=== PATIENT | female | born 1990 | race African-American/Black ===

== ENCOUNTER 2016-10-19 12:54 | Emergency (ER) | payer OTHER ==
[~2016-10-19] VITALS: Ht 152.4 cm; Wt 63.5 kg
[2016-10-19 13:15] VITALS: BP 135/95
[2016-10-19] MEDS ORDERED: SULF1TAB24 PO (13:57)
--- NOTE | 2016-10-19 13:57 | PHYS DOC ---
Past Medical History Past Medical History: Other Additional Past Medical Histor: heart murmur Past Surgical History: No Surgical History Alcohol Use: Occasionally Drug Use: None Adult General Chief Complaint Chief Complaint: TEST HPI HPI Patient is a 25 year old female with no significant medical history who presents today requesting a test because she's had left breast nipple discharge for acouple days. Patient denies missing any of her cycles. Denies any history of breast cancer. Review of Systems Review of Systems Constitutional: Denies fever or chills [] Eyes: Denies change in visual acuity, redness, or eye pain [] HENT: Denies nasal congestion or sore throat [] Respiratory: Denies cough or shortness of breath [] Cardiovascular: No additional information not addressed in HPI [] GI: Denies abdominal pain, nausea, vomiting, bloody stools or diarrhea [] : Denies dysuria or hematuria [] Musculoskeletal: Denies back pain or joint pain [] Integument:left nipple discharge Neurologic: Denies headache, focal weakness or sensory changes [] Endocrine: Denies polyuria or polydipsia [] Allergies Allergies Allergies Coded Allergies Type Severity Reaction Last Updated Verified No Known Drug Allergies 06/08/14 No Physical Exam Physical Exam Constitutional: Well developed, well nourished, no acute distress, non-toxic appearance. [] HENT: Normocephalic, atraumatic, bilateral external ears normal, oropharynx moist, no oral exudates, nose normal. [] Eyes: PERRLA, EOMI, conjunctiva normal, no discharge. [] Neck: Normal range of motion, no tenderness, supple, no stridor. [] Cardiovascular:Heart rate regular rhythm, no murmur [] Lungs & Thorax: Bilateral breath sounds clear to auscultation [] Abdomen: Bowel sounds normal, soft, no tenderness, no masses, no pulsatile masses. [] Skin: Bilateral breast are pendulous, both nipples pierced with metallic nipple rings. Left nipple has some yellowish blood drainage around the nipple ring. There is also trace amount of white discharge from the nipple of the left breast. No warmth to the breast. No obvious abscess to the breast. Back: No tenderness, no CVA tenderness. [] Extremities: No tenderness, no cyanosis, no clubbing, ROM intact, no edema. [] Neurologic: Alert and oriented X 3, normal motor function, normal sensory function, no focal deficits noted. [] Psychologic: Affect normal, judgement normal, mood normal. [] Current Patient Data Vital Signs Vital Signs Date Time Temp Pulse Resp B/P (MAP) Pulse Ox O2 Delivery O2 Flow Rate FiO2 10/19/16 13:15 98.1 82 16 100 Room Air 98.1 Lab Values Laboratory Tests Test 10/19/16 12:33 POC Urine HCG, Qualitative Hcg negative (Negative) EKG EKG [] Radiology/Procedures Radiology/Procedures [] Course & Med Decision Making Course & Med Decision Making Pertinent Labs and Imaging studies reviewed. (See chart for details) Patient is in the ED requesting a test. She's had left nipple discharge for acouple days. Negative test. Tetanus shot is up-to- date. She does of infection on the left breast most of it originating from the pierced area of the breast. I recommended she removes the hardware from the breast. Reminded had the breast pierced area will probably close. Discharge her with the Bactrim. Recommended warm compresses to the breast and follow-up with an TRANSFER TABLE OPERATOR that I provided all her own doctor in 1-2 weeks. Dragon Disclaimer Dragon Disclaimer This electronic medical record was generated, in whole or in part, using a voice recognition dictation system. Departure Departure Impression: Primary Impression: Infection of left breast Disposition: 01 HOME, SELF-CARE Condition: STABLE Referrals: NO PCP (PCP) LOTUS BEDOYA Jr, MD follow up in one week Patient Instructions: Skin Infections Additional Instructions: You were seen for left breast infection. Consider removing the hardware from the left breast to help clear the infection. The pierced hole might close. Complete your antibiotics. Follow-up with your own doctor or the provided OB/ MATERIALS ANALYST in 1 week. Scripts Sulfamethoxazole/Trimethoprim (BACTRIM DS TABLET) 1 Each Tablet 1 TAB PO BID, #20 TAB Prov: LOU DELVALLE APRN 10/19/16 LOU DELVALLE APRN Oct 19, 2016 13:57
== END 2016-10-19 14:00 | disposition home or self-care (01) ==
LOC: ER 12:54
DX: N61.0 Mastitis without abscess (principal); Z32.02 Encounter for pregnancy test, result negative
CPT/HCPCS: 81025; 99283

== ENCOUNTER 2017-06-15 22:00 | Emergency (ER) | payer OTHER ==
[2017-06-15 22:31] LABS: URINE HCG POC HCG NEGATIVE (Negative)
== END 2017-06-16 00:03 | disposition home or self-care (01) ==
LOC: ER 06-16 00:03
DX: R10.32 Left lower quadrant pain (principal); F12.10 Cannabis abuse, uncomplicated
CPT/HCPCS: 76830; 76856; 81025; 99284-25

== ENCOUNTER 2019-04-19 10:31 | Emergency (ER) | payer SELFPAY ==
[~2019-04-19] VITALS: Ht 152.4 cm; Wt 66.0 kg
[~2019-04-19 10:31] MED LIST: SULF1TAB24 PO
[2019-04-19 11:02] LABS: BILIRUBIN,URINE NEGATIVE (NEG); CLARITY,URINE CLEAR; COLOR,URINE YELLOW; NITRITE,URINE NEGATIVE (NEG); PROTEIN,URINE NEGATIVE (NEG-TRACE); UROBILINOGEN,URINE 0.2 mg/dL (0.2 mg/dL)
[2019-04-19] MEDS ORDERED: IV NORMAL SALINE 1000ML BAG 1,000 ML IV ONE (11:14)
[2019-04-19] MEDS ORDERED: ONDANSETRON PF 4 MG/2 ML VIAL. IV ONE (11:15)
[2019-04-19] MEDS ORDERED: FAMOTIDINE 20 MG/2 ML VIAL IVP ONE (11:15)
[2019-04-19] MEDS ORDERED: fentaNYL PF VIAL 100 MCG/2 ML VIAL IV ONE (11:15)
[2019-04-19 11:17] LABS: BACTERIA,URINE 0 /HPF (0-FEW); RBC,URINE OCC /HPF (0-2); SQUAMOUS EPITHELIAL CELL,UR FEW /LPF; WBC,URINE 0 /HPF (0-4)
[2019-04-19 11:30] VITALS: BP 140/84
--- NOTE | 2019-04-19 11:31 | PHYS DOC ---
Past Medical History Past Medical History: Other Additional Past Medical Histor: heart murmur Past Surgical History: No Surgical History Smoking Status: Never Smoker Alcohol Use: Occasionally Drug Use: Marijuana Adult General Chief Complaint Chief Complaint: ABDOMINAL PAIN HPI HPI Patient is a 28 year old female who presents with 3 days of epigastric pain that is dull. She states she has a lot of gas and had a stool this morning that looked like "rohini". States have nausea but no vomiting or diarrhea. States took Tylenol yesterday. Review of Systems Review of Systems GI: Epigastric abdominal pain, nausea, denies vomiting, bloody stools or diarrhea [] All other systems were reviewed and found to be within normal limits, except as documented in this note. Current Medications Current Medications Current Medications Medications (Trade) Dose Ordered Sig/Mike Start Time Stop Time Status Last Admin Dose Admin Famotidine (Pepcid Vial) 20 mg 1X ONCE 04/19/19 11:15 04/19/19 11:18 DC 04/19/19 11:30 20 MG Fentanyl Citrate (Fentanyl 2ml Vial) 50 mcg 1X ONCE 04/19/19 11:15 04/19/19 11:18 DC 04/19/19 11:31 50 MCG Info (CONTRAST GIVEN -- Rx MONITORING) 1 each PRN DAILY PRN 04/19/19 11:45 04/21/19 11:44 Iohexol (Omnipaque 300 Mg/ml) 75 ml 1X ONCE 04/19/19 12:00 04/19/19 12:01 DC 04/19/19 12:20 75 ML Ondansetron HCl (Zofran) 4 mg 1X ONCE 04/19/19 11:15 04/19/19 11:18 DC 04/19/19 11:30 4 MG Sodium Chloride 1,000 ml @ 1,000 mls/hr Q1H ONCE 04/19/19 11:14 04/19/19 12:13 DC 04/19/19 11:30 1,000 MLS/HR Allergies Allergies Allergies Coded Allergies Type Severity Reaction Last Updated Verified No Known Drug Allergies 06/08/14 No Physical Exam Physical Exam Constitutional: Well developed, well nourished, no acute distress, non-toxic appearance. [] HENT: Normocephalic, atraumatic, bilateral external ears normal, oropharynx moist, no oral exudates, nose normal. [] Eyes: PERRLA, EOMI, conjunctiva normal, no discharge. [] Neck: Normal range of motion, no tenderness, supple, no stridor. [] Cardiovascular:Heart rate regular rhythm, no murmur [] Lungs & Thorax: Bilateral breath sounds clear to auscultation [] Abdomen: Bowel sounds normal, soft, epigastric tenderness, no masses, no pulsatile masses. [] Skin: Warm, dry, no erythema, no rash. [] Back: No tenderness, no CVA tenderness. [] Extremities: No tenderness, no cyanosis, no clubbing, ROM intact, no edema. [] Neurologic: Alert and oriented X 3, normal motor function, normal sensory funct ion, no focal deficits noted. [] Psychologic: Affect normal, judgement normal, mood normal. [] Current Patient Data Vital Signs Vital Signs Date Time Temp Pulse Resp B/P (MAP) Pulse Ox O2 Delivery O2 Flow Rate FiO2 04/19/19 11:31 16 100 Room Air 04/19/19 11:30 72 140/84 (102) 04/19/19 10:50 98.3 98.3 Lab Values Laboratory Tests Test 04/19/19 10:44 04/19/19 10:48 04/19/19 11:20 Urine Collection Type Unknown Urine Color Yellow Urine Clarity Clear Urine pH 7.0 Urine Specific [place] 1.025 Urine Protein Negative mg/dL (NEG-TRACE) Urine Glucose (UA) Negative mg/dL (NEG) Urine Ketones (Stick) Negative mg/dL (NEG) Urine Blood Negative (NEG) Urine Nitrite Negative (NEG) Urine Bilirubin Negative (NEG) Urine Urobilinogen Dipstick 0.2 mg/dL (0.2 mg/dL) Urine Leukocyte Esterase Negative (NEG) Urine RBC Occ /HPF (0-2) Urine WBC 0 /HPF (0-4) Urine Squamous Epithelial Cells Few /LPF Urine Bacteria 0 /HPF (0-FEW) Urine Mucus Marked /LPF POC Urine HCG, Qualitative Hcg negative (Negative) White Blood Count 7.2 x10^3/uL (4.0-11.0) Red Blood Count 5.00 x10^6/uL (3.50-5.40) Hemoglobin 14.9 g/dL (12.0-15.5) Hematocrit 44.2 % (36.0-47.0) Mean Corpuscular Volume 89 fL (79-100) Mean Corpuscular Hemoglobin 30 pg (25-35) Mean Corpuscular Hemoglobin Concent 34 g/dL (31-37) Red Cell Distribution Width 14.2 % (11.5-14.5) Platelet Count 263 x10^3/uL (140-400) Neutrophils (%) (Auto) 74 % (31-73) H Lymphocytes (%) (Auto) 18 % (24-48) L Monocytes (%) (Auto) 8 % (0-9) Eosinophils (%) (Auto) 0 % (0-3) Basophils (%) (Auto) 1 % (0-3) Neutrophils # (Auto) 5.3 x10^3/uL (1.8-7.7) Lymphocytes # (Auto) 1.3 x10^3/uL (1.0-4.8) Monocytes # (Auto) 0.5 x10^3/uL (0.0-1.1) Eosinophils # (Auto) 0.0 x10^3/uL (0.0-0.7) Basophils # (Auto) 0.0 x10^3/uL (0.0-0.2) Sodium Level 137 mmol/L (136-145) Potassium Level 4.3 mmol/L (3.5-5.1) Chloride Level 103 mmol/L (98-107) Carbon Dioxide Level 27 mmol/L (21-32) Anion Gap 7 (6-14) Blood Urea Nitrogen 14 mg/dL (7-20) Creatinine 0.8 mg/dL (0.6-1.0) Estimated GFR (Cockcroft-Gault) 104.1 BUN/Creatinine Ratio 18 (6-20) Glucose Level 98 mg/dL (70-99) Calcium Level 8.9 mg/dL (8.5-10.1) Total Bilirubin 0.4 mg/dL (0.2-1.0) Aspartate Amino Transferase (AST) 18 U/L (15-37) Alanine Aminotransferase (ALT) 30 U/L (14-59) Alkaline Phosphatase 62 U/L (46-116) Total Protein 7.8 g/dL (6.4-8.2) Albumin 3.6 g/dL (3.4-5.0) Albumin/Globulin Ratio 0.9 (1.0-1.7) L Lipase 432 U/L (73-393) H Laboratory Tests 04/19/19 11:20 Laboratory Tests 04/19/19 11:20 EKG EKG [] Radiology/Procedures Radiology/Procedures [] Impressions: [facility] [address] [place] [address] IMAGING REPORT Signed PATIENT: JAY PATEL ACCOUNT: [id number] : 1990 LOCATION: ER AGE: 28 SEX: F EXAM STATUS: REG ER ORD. PHYSICIAN: GENESIS HERRING APRN REASON: abd pain, nausea, constipation PROCEDURE: CT ABD PELV W/ IV CONTRST ONLY Examination: CT ABD PELV W/ IV CONTRST ONLY History: Abdominal pain, nausea, constipation Comparison/Correlation: None Findings: Axial images of the abdomen and pelvis were obtained following IV contrast. Sagittal and coronal reformatted images were provided. The filling bases are clear. Liver, spleen, pancreas, adrenal glands, and kidneys are normal. Gallbladder fossa is unremarkable. No extraluminal gas or bowel obstruction. No inflammatory findings about the cecum. Appendix appears to be visualized and unremarkable. A few nonenlarged lymph nodes are present medial to the cecum. Intrauterine device is present. Right adnexal rim-enhancing follicle which probably represents a corpus luteum cyst is present. Additional smaller follicles also suggested involving the ovaries. Urinary bladder is unremarkable. Bony structures are unremarkable. Impression: Right adnexal corpus luteum cyst. Few nonenlarged lymph nodes medial to the cecum. Correlate for possibility of mesenteritis. No obstruction. No significant quantity of stool in the colon. PQRS Compliance Statement: One or more of the following individualized dose reduction techniques were utilized for this examination: 1. Automated exposure control 2. Adjustment of the mA and/or kV according to patient size 3. Use of iterative reconstruction technique Electronically signed by: Adalid Galvan MD (04/19/2019 12:31 PM) [id number] DICTATED and SIGNED BY: ADALID GALVAN MD DATE: 04/19/19 1231 Course & Med Decision Making Course & Med Decision Making Pertinent Labs and Imaging studies reviewed. (See chart for details) Denies vomiting, soa, chest pain, diarrhea, fever, headache, dizziness, dysuria, visual changes, weakness. Lungs are clear to auscultation. Abdomen tender to epigastric but otherwise soft and non tender. Afebrile. [] Dragon Disclaimer Dragon Disclaimer This electronic medical record was generated, in whole or in part, using a voice recognition dictation system. Departure Departure Impression: Primary Impression: Abdominal pain Disposition: HOME, SELF-CARE Condition: STABLE Referrals: LUIS ANTONIO INIGUEZ MD (PCP) ROGER PARK MD Patient Instructions: Abdominal Pain (Nonspecific) Additional Instructions: Follow up with GI if pain continues. Drink plenty of fluids. Take medications as prescribed. Scripts Famotidine (PEPCID) 20 Mg Tablet 20 MG PO BID, #20 TAB Prov: GENESIS HERRING APRN 04/19/19 Problem Qualifiers Primary Impression: Abdominal pain Abdominal location: epigastric Qualified Codes: R10.13 - Epigastric pain GENESIS HERRING APRN Apr 19, 2019 11:31
[2019-04-19 11:43] LABS: BASO % 1 % (0-3); EOS % 0 % (0-3); HEMATOCRIT 44.2 % (36.0-47.0); HEMOGLOBIN 14.9 g/dL (12.0-15.5); LYMPH # 1.3 x10^3/uL (1.0-4.8); LYMPH % 18 % (24-48); MEAN CORPUSCULAR HEMOGLOBIN 30 pg (25-35); MEAN CORPUSCULAR HGB CONC 34 g/dL (31-37); MEAN CORPUSCULAR VOLUME 89 fL (79-100); MONO # 0.5 x10^3/uL (0.0-1.1); MONO % 8 % (0-9); NEUT # 5.3 x10^3/uL (1.8-7.7); NEUT % 74 % (31-73); PLATELET COUNT 263 x10^3/uL (140-400); RED CELL DISTRIBUTION WIDTH 14.2 % (11.5-14.5); WHITE BLOOD COUNT 7.2 x10^3/uL (4.0-11.0)
[2019-04-19] MEDS ORDERED: CONTRAST GIVEN. MC PRN (11:45)
[2019-04-19 11:49] LABS: CALCIUM 8.9 mg/dL (8.5-10.1); CREATININE 0.8 mg/dL (0.6-1.0); GFR 104.1; POTASSIUM 4.3 mmol/L (3.5-5.1)
[2019-04-19 11:55] LABS: ALBUMIN 3.6 g/dL (3.4-5.0); ALBUMIN/GLOBULIN RATIO 0.9 (1.0-1.7); TOTAL BILIRUBIN 0.4 mg/dL (0.2-1.0); TOTAL PROTEIN 7.8 g/dL (6.4-8.2)
[2019-04-19] MEDS ORDERED: IOHEXOL 300 MG/ML 100ML VIAL. IV ONE (12:00)
--- NOTE | 2019-04-19 12:34 | RAD ---
Examination: CT ABD PELV W/ IV CONTRST ONLY History: Abdominal pain, nausea, constipation Comparison/Correlation: None Findings: Axial images of the abdomen and pelvis were obtained following IV contrast. Sagittal and coronal reformatted images were provided. The filling bases are clear. Liver, spleen, pancreas, adrenal glands, and kidneys are normal. Gallbladder fossa is unremarkable. No extraluminal gas or bowel obstruction. No inflammatory findings about the cecum. Appendix appears to be visualized and unremarkable. A few nonenlarged lymph nodes are present medial to the cecum. Intrauterine device is present. Right adnexal rim-enhancing follicle which probably represents a corpus luteum cyst is present. Additional smaller follicles also suggested involving the ovaries. Urinary bladder is unremarkable. Bony structures are unremarkable. Impression: Right adnexal corpus luteum cyst. Few nonenlarged lymph nodes medial to the cecum. Correlate for possibility of mesenteritis. No obstruction. No significant quantity of stool in the colon. PQRS Compliance Statement: One or more of the following individualized dose reduction techniques were utilized for this examination: 1. Automated exposure control 2. Adjustment of the mA and/or kV according to patient size 3. Use of iterative reconstruction technique Electronically signed by: Adalid Martines MD (04/19/2019 12:31 PM) [id number]
[2019-04-19] MEDS ORDERED: FAMO-63 PO (12:50)
[2019-04-19 13:20] LABS: BARBITURATES NEG (NEG); BENZODIAZEPINES NEG (NEG); CANNABINOIDS POS (NEG); COCAINE NEG (NEG); METHADONE NEG (NEG); OPIATES NEG (NEG); PHENCYCLIDINE NEG (NEG)
[2019-04-19 13:21] LABS: AMPHETAMINE/METHAMPHETAMINE NEG (NEG)
== END 2019-04-19 13:05 | disposition home or self-care (01) ==
LOC: ER 10:31
DX: R10.13 Epigastric pain (principal); R11.0 Nausea; F12.90 Cannabis use, unspecified, uncomplicated; Z79.899 Other long term (current) drug therapy
CPT/HCPCS: 36415; 74177; 80053; 80307; 81001; 81025; 83690; 85025; 96374; 96375; 99285; J2405; J3010; J3490; J7030; Q9967